=== PATIENT | male | born 1980 | race Caucasian/White ===

== ENCOUNTER 2022-01-18 16:10 | Emergency (ER) | payer OTHER ==
[~2022-01-18] VITALS: Ht 190.5 cm; Wt 112.5 kg
[~2022-01-18 16:10] MED LIST: OXYACE5T PO; RXOXYACE PO
== END 2022-01-18 17:40 | disposition home or self-care (01) ==
LOC: ER 16:10
DX: S61.214A Laceration without foreign body of right ring finger without damage to nail, initial encounter (principal); W31.9XXA Contact with unspecified machinery, initial encounter
CPT/HCPCS: 12001; 73140; 99283-25